=== PATIENT | male | born 1985 | race Caucasian/White ===

== ENCOUNTER 2021-07-16 14:32 | Emergency (ER) | payer OTHER ==
[2021-07-16 15:09] LABS: BASOPHIL 1.3 % (0-2); EOSINOPHIL 4.1 % (0-5); HCT 47.6 % (42.0-52.0); HGB 16.5 g/dl (13.2-18.0); LYMPHOCYTE 35.2 % (15-48); MCH 30.2 pg (25.0-31.0); MCHC 34.7 g/dL (32.0-36.0); MCV 87.2 fL (78.0-100.0); MPV 9.1 fL (6.0-9.5); NEUTROPHIL 50.1 % (41-80); NRBC 0; PLT 278 K/uL (150-400); RBC 5.46 M/uL (4.70-6.00); RDW 11.9 % (11.5-14.0); WBC 6.9 K/uL (4.0-10.5)
[2021-07-16 15:18] LABS: BILIRUBIN NEGATIVE (NEGATIVE); BLOOD NEGATIVE Ery/uL (NEGATIVE); CLARITY CLEAR (CLEAR); COLOR YELLOW (YELLOW); GLUCOSE (U) NORMAL (NORMAL); LEUKOCYTES NEGATIVE Leu/uL (NEGATIVE); NITRITE NEGATIVE (NEGATIVE); PROTEIN NEGATIVE (NEGATIVE); SPECIFIC GRAVITY 1.025 (1.001-1.030); UROBILINOGEN 0.2 mg/dL (0.2-1.0); pH 6.5 (5.0-9.0)
[2021-07-16 15:22] LABS: AMYLASE 101 U/L (25-115); LIPASE 174 U/L (73-393)
[2021-07-16 16:13] LABS: ALBUMIN 4.3 g/dL (3.4-5.0); BILIRUBIN - TOTAL 0.8 mg/dL (0.2-1.0); BUN/CREAT RATIO (CALC) 18.4 RATIO; CREATININE 0.87 mg/dL (0.67-1.17); POTASSIUM 4.3 mmol/L (3.5-5.1); TOTAL PROTEIN 7.3 g/dL (6.4-8.2)
[2021-07-16] MEDS ORDERED: MOTRIN600 MG PO (17:36)
== END 2021-07-16 18:01 | disposition home or self-care (01) ==
LOC: FER 14:32
PROVIDERS: Physician Assistant
DX: R10.31 Right lower quadrant pain (principal); Z88.0 Allergy status to penicillin
CPT/HCPCS: 36415; 80053; 81003; 82150; 83690; 85025; Q9967